=== PATIENT | male | born 1975 | race Caucasian/White ===

== ENCOUNTER 2021-07-22 11:45 | Emergency (ER) | payer SELFPAY ==
[~2021-07-22] VITALS: Ht 165.1 cm; Wt 105.8 kg
--- NOTE | 2021-07-22 12:01 | NUR ---
PT TO [facility]
--- NOTE | 2021-07-22 12:15 | NUR ---
PT AMBULATED TO BED 11
--- NOTE | 2021-07-22 12:17 | NUR ---
45Y MALE BIB SELF DUE TO WOUND ON L LOWER CALF. PT STATED "WOUND OCCURED X3 YRS AGO WHEN HE VEIN STARTED TO LEAK." CLOSED WOUND NOTED ON L LOWER CALF AT THIS TIME. PAIN 09/03. PT HAS FULL SENSATION OF LEG/FEET AND IS ABLE TO AMBULATE PMH: DENIES NKA
[2021-07-22] MEDS ORDERED: NAPR-54 PO (12:35)
[2021-07-22 12:42] VITALS: BP 169/99
== END 2021-07-22 12:42 | disposition home or self-care (01) ==
LOC: MED 11:45
DX: I87.2 Venous insufficiency (chronic) (peripheral) (principal); Z79.899 Other long term (current) drug therapy
CPT/HCPCS: 99282